=== PATIENT | female | born 1995 | race Caucasian/White ===

== ENCOUNTER 2016-10-23 14:55 | Emergency (ER) | payer OTHER ==
--- NOTE | 2016-10-23 16:54 | EDPHY ---
H & P Stated Complaint: SZ vs syncope HPI/ROS: CHIEF COMPLAINT: [place] faint HISTORY OF PRESENT ILLNESS: This is a generally healthy 21-year-old female who was standing outside in the sun this afternoon when she began to feel lightheaded and faint. She mentioned this to her friends and then she began to fall to the ground. Her friends were able to catch her and lower her to the ground where she awakened immediately. No abnormal movements noted. No confusion. She then went to a grocery store to get some food but, while standing in the sun, began to feel lightheaded again. At the suggestion of others, 911 was summoned. At present she feels back to normal. She has had something to eat and drink since this occurred. No recent illnesses other than a upper respiratory infection with sinus congestion. She has a mild headache, no visual changes, no confusion, no numbness, no weakness. REVIEW OF SYSTEMS: A ten point review of systems was performed and is negative with the exception of the items mentioned in the HPI. - Personal History LMP (Females 10-55): Extended Cycle BCP/Inj Current Tetanus Diphtheria and Acellular Pertussis (TDAP): Yes - Medical/Surgical History PMH: No past medical history. 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 - Physical Exam Exam: General Appearance: Alert. Vital signs reviewed. Blood pressure 98/62 on arrival. Eyes: Pupils equal and round, no conjunctival injection, no discharge. Anicteric. ENT, Mouth: Mucous membranes are moist, no oropharyngeal erythema or edema. No tongue injury. Neck: No lymphadenopathy, supple. Nontender over the cervical spine. Respiratory: Lungs are clear to auscultation; no wheezes, rales, or rhonchi. Cardiovascular: Regular rate and rhythm; no murmur, rub, or gallop. Gastrointestinal: Abdomen is soft and nontender, no masses or organomegaly, bowel sounds normal. Skin: Warm and dry, no rashes on exposed skin, normal color. Back: Nontender to palpation over the thoracolumbar spine. No CVAT. Extremities: No lower extremity edema, no calf tenderness or swelling. Neurological: Alert and oriented. Moving all four extremities easily and equally. Cranial nerves II through XII are examined and are intact (visual acuity not tested). Strength is 5 over 5 bilaterally with testing of all major motor groups. Sensation is intact to light touch over all 4 extremities. Deep tendon reflexes are 2+ in the biceps and knees bilaterally. Gait is normal. Psychiatric: Normal affect. Constitutional: Initial Vital Signs Temperature (C) 36.9 C 10/23/16 15:00 Heart Rate 94 10/23/16 15:00 Respiratory Rate 18 10/23/16 15:00 Blood Pressure 98/62 L 10/23/16 15:00 O2 Sat (%) 97 10/23/16 15:00 O2 Delivery Mode Room Air Allergies/Adverse Reactions: food allergies Allergy (Uncoded 10/23/16 15:01) Home Medications: Medication Instructions Recorded Control Pill 10/23/16 Lisdexamfetamine Dimesylate 20 mg PO 10/23/16 [Vyvanse] Medical Decision Making - Diagnostics EKG Interpretation: 12 lead EKG is interpreted in Trace master View by emergency department physician. No acute findings. Sinus rhythm with a rate of 70. ED Course/Re-evaluation: CBC, chemistries, test, and EKG reviewed. No significant abnormalities. Nothing to suggest significant blood loss or dehydration. She is not in not concerned about fainting secondary to a tubal . Orthostatic vital signs normal. Blood pressure at discharge 108/67. She has no risk factors and there is nothing to suggest PE on the physical exam. EKG shows a sinus rhythm without ischemic changes, normal intervals and axis. The nursing triage note mentions syncope versus seizure. There is no report of actual loss of consciousness or uncontrolled limb movement. This does not sound like seizure. This sounds like a presyncopal event, likely vasovagal. After eating and drinking and remaining in a cooler environment she now feels fine. She is comfortable returning home. Differential Diagnosis: Syncope including but not limited to vasovagal syncope, arrhythmia, dehydration , ectopic , and blood loss. - Data Points Laboratory Results: Laboratory Results 10/23/16 17:00 10/23/16 17:00 Departure - Departure Disposition: Home, Routine, Self-Care Clinical Impression: Pre-syncope Condition: Good Instructions: Near Syncope (ED) Referrals: Cassie Cruz MD [Primary Care Provider] - As per Instructions
[2016-10-23 17:00] VITALS: RESP 16
--- NOTE | 2016-10-23 17:05 | CPEKG ---
Heart Rate: 70 RR Interval: 857 P-R Interval: 144 QRSD Interval: 94 QT Interval: 384 QTC Interval: 415 P Burns: 56 QRS Burns: 75 T Wave Burns: 45 EKG Severity - NORMAL ECG - EKG Impression: SINUS RHYTHM Electronically Signed By: Yessica Vanegas 24-Oct-2016 00:23:52
[2016-10-23 17:18] LABS: % IMMATURE GRANULYOCYTES 0.4 % (0.0-1.1); ABSOLUTE IMMATURE GRANULOCYTES 0.03 10^3/uL (0.00-0.10); ADD DIFF? NO; ADD MORPH? NO; ADD SCAN? NO; ATYPICAL LYMPHOCYTE FLAG 10 (0-99); FRAGMENT RBC FLAG 0 (0-99); HEMATOCRIT 37.5 % (38.0-47.0); HEMOGLOBIN 13.2 g/dL (12.6-16.3); LEFT SHIFT FLG 0 (0-99); LIPEMIA HEMOLYSIS FLAG 90 (0-99); MEAN CELL HEMOGLOBIN 32.3 pg (27.9-34.1); MEAN CELL HEMOGLOBIN CONCENTR. 35.2 g/dL (32.4-36.7); MEAN CELL VOLUME 91.7 fL (81.5-99.8); MEAN PLATELET VOLUME 10.7 fL (8.7-11.7); PLATELET CLUMPS FLAG 0 (0-99); PLATELET COUNT 231 10^3/uL (150-400); RED BLOOD CELL COUNT 4.09 10^6/uL (4.18-5.33); RED CELL DISTRIBUTION WIDTH 11.9 % (11.5-15.2)
[2016-10-23 17:31] LABS: ANION GAP 14 mEq/L (8-16); CALCIUM 9.6 mg/dL (8.5-10.4); CARBON DIOXIDE 21 mEq/l (22-31); CHLORIDE 105 mEq/L (97-110); GLOMERULAR FILTRATION RATE > 60; GLUCOSE 85 mg/dL (70-100); POTASSIUM 4.3 mEq/L (3.5-5.2); SODIUM 140 mEq/L (134-144)
[2016-10-23 17:59] VITALS: BP 108/67; PULSE 74; TEMP 97.9; O2SAT 97
== END 2016-10-23 17:59 | disposition home or self-care (01) ==
DX: R55 Syncope and collapse (principal)